=== PATIENT | female | born 2000 | race Two or more races ===

== ENCOUNTER 2025-09-08 14:44 | Emergency (ER) | payer MEDICAID, OTHER ==
--- NOTE | 2025-09-08 16:52 | ED.PDOC ---
General HPI Comments A 24 YEAR OLD FEMALE PRESENTS TO THE ED WITH COMPLAINT OF PELVIC PAIN. PT HAS BEEN HAVING INTERMITTENT PELVIC PAIN FOR THE PAST 2-3 WEEKS. PT STATES THE PAIN IS DULL AND ACHING, WITH NO ASSOCIATED EXACERBATING OR RELIEVING FACTORS. PATIENT DENIES FEVER, CHILLS, SHORTNESS OF BREATH, CHEST PAIN, ABDOMINAL PAIN, NAUSEA, VOMITING, HEADACHE, OR OTHER COMPLAINTS. NO OTHER SYMPTOMS OR MODIFYING FACTORS AT THIS TIME. PATIENT IS ALERT, ORIENTED X 4, AND HAS STEADY GAIT. 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 Family History Family History: Reviewed,noncontributory to illness Social History Smoker: Non-Smoker Alcohol: Denies ETOH Use Drugs: Denies Drug Use Lives In: Home Constitutional: denies: chills, diaphoresis, fatigue, fever, malaise, sweats, weakness, others EENTM: denies: blurred vision, double vision, ear bleeding, ear discharge, ear drainage, ear pain, ear ringing, eye pain, eye redness, hearing loss, mouth pain, mouth swelling, nasal discharge, nose bleeding, nose congestion, nose pain, photophobia, tearing, throat pain, throat swelling, voice changes, others Respiratory: denies: cough, hemoptysis, orthopnea, SOB at rest, shortness of breath, SOB with excertion, stridor, wheezing, others Cardiovascular: denies: chest pain, dizzy spells, diaphoresis, Dyspnea on exertion, edema, irregular heart beat, left arm pain, lightheadedness, palpitations, PND, syncope, others Gastrointestinal: denies: abdomen distended, abdominal pain, blood streaked bowels, constipated, diarrhea, dysphagia, difficulty swallowing, hematemesis, melena, nausea, poor appetite, poor fluid intake, rectal bleeding, rectal pain, vomiting, others Genitourinary: reports: dysuria, pain (DIFFUSE PELVIC PAIN); denies: abnormal vagina bleeding, burning, dyspareunia, flank pain, frequency, hematuria, incontinence, , vagina discharge, urgency, others Neurological: denies: dizziness, fainting, headache, left sided numbness, left sided weakness, numbness, paresthesia, pre-existing deficit, right sided numbness, right sided weakness, seizure, speech problems, tingling, tremors, weakness, others Musculoskeletal: denies: back pain, gout, joint pain, joint swelling, muscle pain, muscle stiffness, neck pain, others Integumetry: denies: bruises, change in color, change in hair/nails, dryness, laceration, lesions, lumps, rash, wounds, others Allergic/Immunocompromised: denies: Difficulty Healing, Frequent Infections, Hives, Itching, others Hematologic/Lymphatic: denies: anemia, blood clots, easy bleeding, easy bruising, swollen glands, others Endocrine: denies: excessive hunger, excessive sweating, excessive thirst, excessive urination, flushing, intolerance to cold, intolerance to heat, unexplained weight gain, unexplained weight loss, others Psychiatric: denies: anxiety, bipolar disorder, depression, hopeless, panic disorder, schizophrenia, sleepless, suicidal, others All Other Systems: Reviewed and Negative Physical Exam General Appearance: No Apparent Distress, Normal HEENT: Normal ENT Inspection, PERRL/EOMI, Pharynx Normal, TMs Normal Neck: Full Range of Motion, Non-Tender, Normal, Normal Inspection Respiratory: Chest Non-Tender, Lungs Clear, No Accessory Muscle Use, No Respiratory Distress, Normal Breath Sounds Cardiovascular: No Edema, No JVD, No Murmur, No Gallop, Normal Peripheral Pulses, Regular Rate/Rhythm Breast Exam: Deferred Gastrointestinal: No Organomegaly, Non Tender, No Pulsatile Mass, Normal Bowel Sounds, Soft Genitalia: Deferred Pelvic: Normal External Exam, Tender Uterus, Other (MILD TENDERNESS PELVIC, NO GUARDING AND REBOUND TENDERNESS. 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 Was a procedure done?: No Differential Diagnosis Kidney stone (Female): Musculoskeletal pain, Strain Urinary Problem (Female): PID, Pyelonephritis, UTI, Vaginitis, Other (FIBRODS, ) X-Ray, Labs, Meds, VS Vital Signs Date Time Temp Pulse Resp B/P (MAP) Pulse Ox O2 Delivery O2 Flow Rate FiO2 09/08/25 14:45 98.1 68 18 127/71 98 98.1 Lab Test 09/08/25 16:16 Range/Units Urine Color Light-yellow Yellow Urine Clarity Clear Clear Urine pH 6.0 5.0-9.0 Urine Specific [place]olt 1.023 1.001-1.035 Urine Protein Negative Negative Urine Ketones Negative Negative Urine Blood Negative Negative /uL Urine Nitrite Negative Negative Urine Bilirubin Negative Negative Urine Urobilinogen Normal Negative mg/dL Urine Leukocyte Esterase 2+ Negative /uL Urine RBC 3 0 - 4 /hpf Urine Microscopic WBC 1 0-5 /HPF Urine Squamous Epithelial Cells Few <5 /hpf Urine Bacteria Few H None Seen /hpf Urine Glucose Normal Normal mg/dL Urine Test Negative Negative [place] [id number] Ph: [phone] DIAGNOSTIC IMAGING Diagnostic Imaging Report : [id number] Signed PATIENT: ARIANA MCCONNELL ACCT: [id number] UNIT: [id number] : 2000 LOC: ER ROOM / BED: / AGE / SEX: 24 / F ADM STATUS: REG ER SERVICE [id number] ORDERING PHYSICIAN: MG RANDALL PROCEDURE(s): PELUS - PELVIC REASON: PELVIC PAIN X 2 WEEKS ORDER NUMBER(s): [id number], ACCESSION NUMBER(s): [id number] Technique: Real-time ultrasound images through the pelvis using a transabdominal transducer. Indication: PELVIC PAIN X 2 WEEKS Comparison: None Findings: The uterus measures 6.6 cm. The endometrial stripe measures 14 mm. There are no focal masses. There is no abnormal flow in the endometrium. Right ovary measures 2.3 x 1.7 x 1.9 cm. Normal flow on color doppler images. No focal masses are identified. Left ovary measures 2.6 x 1.8 x 2.4 cm. Normal flow on color doppler images. No focal masses are identified. There is no significant free fluid in the pelvis. Impression: Grossly unremarkable transabdominal pelvic ultrasound. ATED BY: RIKI SILVA MD DICTATED DATE/TIME: 09/08/251725 SIGNED BY: RIKI SILVA MD SIGNED DATE/TIME: 09/08/251725 CC: X-Ray, Labs, Meds, VS Comment COURSE: EXTERNAL MEDICAL RECORDS REVIEWED: [NONE] INDEPENDENT HISTORIANS: [NONE] SOCIAL DETERMINANTS OF HEALTH: [NONE] LABS ORDERED: UA, URINE REVIEWED AND INTERPRETED RESULTS: NONE IMAGING ORDERED: PELVIC US TREATMENTS ORDERED: NO PROCEDURES PERFORMED: NONE CRITICAL CARE TIME: NONE I HAVE DISCUSSED THE PATIENT WITH THE ATTENDING PHYSICIAN DR. SYKES AND HE AGREES WITH THE PATIENT'S PLAN OF CARE AND DISPOSITION. BASED ON HISTORY OF PRESENT ILLNESS, AND PHYSICAL EXAM, PATIENT WILL BE DISCHARGED HOME. DISCUSSED PLAN FOR DISCHARGE HOME WITH RX [SEPTRA DS AND MOTRIN ]. MEDICATION WARNINGS GIVEN. SHARED DECISION MAKING: DISCUSSED WITH PATIENT THAT THEIR WORKUP WAS NORMAL. PATIENT INSTRUCTED TO FOLLOW UP WITH PRIMARY CARE PROVIDER IN 1-2 DAYS FOR RE- EVALUATION OF SYMPTOMS. PATIENT VERBALIZES UNDERSTANDING TO RETURN TO ED FOR NEW OR WORSENING SYMPTOMS OR IF FOLLOW UP WITH PCP CANNOT BE OBTAINED. PATIENT FEELS COMFORTABLE GOING HOME AT THIS TIME. ALL QUESTIONS ADDRESSED AT TIME OF DISCHARGE. Time of 1ST Reevaluation: 17:20 Reevaluation 1ST: Improved Patient Education/Counseling: Diagnosis, Treatment, Need For Follow Up Family Education/Counseling: Diagnosis, Treatment, No Family Present Medical Screening: No EMC Exist At This Time SEPSIS Sepsis Screen Date sepsis recognized/suspect: Sep 08, 2025 Time Sepsis recognized/suspect: 1446 Recent Procedure: No On Antibiotic Therapy: No Respiratory Rate >20: No Heart Rate >90: No Temp<36 C (96.8 F) or >38.3 C: No SBP <90 or MAP <65 mmHG: No New Acute Mental Status Change: No Is the patient on CPAP, BIPAP,: No Physician Orders Pelvic (09/08/25 16:18) Vital Signs Date Time Temp Pulse Resp B/P (MAP) Pulse Ox O2 Delivery O2 Flow Rate FiO2 09/08/25 14:45 98.1 68 18 127/71 98 98.1 Departure 1 Departure Time of Disposition: 17:40 Impression: Primary Impression: UTI (urinary tract infection) Qualified Codes: N30.00 - Acute cystitis without hematuria Disposition: HOME / SELF CARE / HOMELESS Condition: Stable Additional Instructions: INSTRUCTIONS: FOLLOW-UP WITH PCP IN 1 TO 2 DAYS. TAKE MEDICATIONS PRESCRIBED. RETURN TO ED FOR ANY NEW OR WORSENING SYMPTOMS. e-Prescriptions Ibuprofen (Ibuprofen) 800 Mg Tab 1 TAB PO TID, #30 TAB Prov: MG RANDALL 09/08/25 Sulfamethoxazole W/Trimethopri (Bactrim Ds Tablet) 1 Tab Tb 1 TAB PO BID for 7 Days, #14 TAB Prov: MG RANDALL 09/08/25 Discharged With: Self Critical Care Note Critical Care Time?: No Stability Stability form required: No Heart Score Heart Score: Heart Score Response (Comments) Value History N/A 0 EKG N/A 0 Age N/A 0 Risk Factors N/A 0 Troponin N/A 0 Total 0 I personally scribed for MG RANDALL ([email or web address]) on 09/08/25 at 16:52. Electronically submitted by Gem Virgen [email or web address]). I personally scribed for MG RANDALL ([email or web address]) on 09/08/25 at 17:29. Electronically submitted by Gem Virgen [email or web address]). MG RANDALL Sep 08, 2025 16:52
[2025-09-08 17:22] LABS: Urine Protein, UAD Negative (Negative)
--- NOTE | 2025-09-08 17:23 | DVH ---
Technique: Real-time ultrasound images through the pelvis using a transabdominal transducer. Indication: PELVIC PAIN X 2 WEEKS Comparison: None Findings: The uterus measures 6.6 cm. The endometrial stripe measures 14 mm. There are no focal masses. There is no abnormal flow in the endometrium. Right ovary measures 2.3 x 1.7 x 1.9 cm. Normal flow on color doppler images. No focal masses are identified. Left ovary measures 2.6 x 1.8 x 2.4 cm. Normal flow on color doppler images. No focal masses are identified. There is no significant free fluid in the pelvis. Impression: Grossly unremarkable transabdominal pelvic ultrasound.
[2025-09-08 17:39] VITALS: BP 124/68; PULSE 66; RESP 18; TEMP 98; O2SAT 98
[2025-09-08] MEDS ORDERED: IBUP-1456 PO (17:43)
[2025-09-08] MEDS ORDERED: BACDST PO (17:43)
== END 2025-09-08 17:42 | disposition home or self-care (01) ==
LOC: ER 14:44
DX: N39.0 Urinary tract infection, site not specified (principal)
CPT/HCPCS: 76856; 81001; 81025